=== PATIENT | male | born 1935 | race Caucasian/White ===

== ENCOUNTER 2024-10-21 07:25 | Day surgery (SDC) | payer MEDICARE, BC ==
[2024-10-21] MEDS ORDERED: fentaNYL 100 MCG/2 ML SDV IV ONE (07:26)
[2024-10-21] MEDS ORDERED: Midazolam 1 MG/ML 2 ML SDV IV ONE (07:26)
[2024-10-21] MEDS ORDERED: Lactated Ringers 1,000 ML IV PRN (07:30)
[2024-10-21] MEDS: Sodium Chloride 0.9% 10 ML Syringe FLUSH PRN (08:22)
[2024-10-21] MEDS: acetaZOLAMIDE 500 MG Cap.ER PO ONE (09:39)
[2024-10-21 13:40] VITALS: BP 118/58; PULSE 55
== END 2024-10-21 09:50 | disposition home or self-care (01) ==
LOC: FB.SDS 07:25
PROVIDERS: ATTEND Ophthalmology
DX: H25.813 Combined forms of age-related cataract, bilateral (principal); H01.001 Unspecified blepharitis right upper eyelid; H01.004 Unspecified blepharitis left upper eyelid; H16.212 Exposure keratoconjunctivitis, left eye; G51.0 Bell's palsy; D23.122 Other benign neoplasm of skin of left lower eyelid, including canthus; H35.033 Hypertensive retinopathy, bilateral; I10 Essential (primary) hypertension; N40.1 Benign prostatic hyperplasia with lower urinary tract symptoms; K21.9 Gastro-esophageal reflux disease without esophagitis; Z79.899 Other long term (current) drug therapy
CPT/HCPCS: A9270-GY; J2250; J3010; V2632

== ENCOUNTER 2024-11-11 06:35 | Day surgery (SDC) | payer MEDICARE, BC ==
[~2024-11-11 06:35] MED LIST: Lactated Ringers 1,000 ML IV PRN; Sodium Chloride 0.9% 10 ML Syringe FLUSH PRN
[2024-11-11] MEDS ORDERED: fentaNYL 100 MCG/2 ML SDV IV ONE (06:36)
[2024-11-11] MEDS ORDERED: Midazolam 1 MG/ML 2 ML SDV IV ONE (06:36)
[2024-11-11] MEDS ORDERED: Sodium Chloride 0.9% 10 ML Syringe FLUSH PRN (06:45)
[2024-11-11] MEDS ORDERED: Lactated Ringers 1,000 ML IV PRN (06:45)
[2024-11-11] MEDS: acetaZOLAMIDE 500 MG Cap.ER PO ONE (08:31)
[2024-11-11 12:38] VITALS: BP 118/55; PULSE 53
== END 2024-11-11 08:52 | disposition home or self-care (01) ==
LOC: FB.SDS 06:35
PROVIDERS: ATTEND Ophthalmology
DX: H25.9 Unspecified age-related cataract (principal); N40.1 Benign prostatic hyperplasia with lower urinary tract symptoms; I10 Essential (primary) hypertension; K21.9 Gastro-esophageal reflux disease without esophagitis; Z87.891 Personal history of nicotine dependence; Z79.899 Other long term (current) drug therapy
CPT/HCPCS: 66984; A9270; J2250; J3010; V2632; 00142; 99100